=== PATIENT | male | born 1965 | race Caucasian/White ===

== ENCOUNTER 2021-02-04 10:24 | Emergency (ER) | payer BC, MEDICARE ==
[2021-02-04] MEDS ORDERED: Sodium Chloride 0.9% 1,000 ML IV ONE (10:47)
[2021-02-04] MEDS ORDERED: Sodium Chloride 0.9% 10 ML Syringe FLUSH PRN (10:47)
[2021-02-04] MEDS ORDERED: Ondansetron 4 MG/2 ML SDV IVPUSH ONE (10:48)
--- NOTE | 2021-02-04 11:13 | EDM.PDOC ---
ED HPI GENERAL MEDICAL PROBLEM - General Stated Complaint: COUGH, FEVER Time Seen by Provider: 02/04/21 10:35 Source of Information: Reports: Patient History Limitations: Reports: No Limitations - History of Present Illness INITIAL COMMENTS - FREE TEXT/NARRATIVE: Patient presented to the ED because of migraine headache for 3 days. He took his topamax qithout relief. He at least 2-3 migraine attack/month. The headache is over the left temporal area with associated nausea and vomiting several times as well as photophobia. There is no fever, chills, cough or cold. - Related Data Allergies Allergy/AdvReac Type Severity Reaction Status Date / Time citalopram [From Celexa] Allergy Other Verified 02/04/21 11:26 divalproex sodium Allergy Other Verified 02/04/21 11:26 [From Depakote] haloperidol [From Haldol] Allergy Other Verified 02/04/21 11:27 risperidone [From Risperdal] Allergy Other Verified 02/04/21 11:26 no NSAIDS Allergy Other Uncoded 02/04/21 11:28 no triptins Allergy Other Uncoded 02/04/21 11:28 Home Meds: Home Meds Apixaban [Eliquis] 5 mg PO BID 02/04/21 [History] Mirtazapine [Remeron] 15 mg PO BEDTIME 02/04/21 [History] PARoxetine HCl [Paxil] 40 mg PO BEDTIME 02/04/21 [History] Prochlorperazine [Compazine] 10 mg PO Q6H PRN #30 tab 02/04/21 [Rx] Topiramate [Topamax] 50 mg PO BID 02/04/21 [History] dilTIAZem HCL [Cardizem LA] 300 mg PO DAILY 02/04/21 [History] ED ROS GENERAL - Review of Systems Review Of Systems: See Below HEENT: Reports: No Symptoms Respiratory: Reports: No Symptoms Cardiovascular: Reports: No Symptoms Endocrine: Reports: No Symptoms GI/Abdominal: Reports: Nausea, Vomiting Musculoskeletal: Reports: No Symptoms Skin: Reports: No Symptoms Neurological: Reports: Headache Psychiatric: Reports: No Symptoms Hematologic/Lymphatic: Reports: No Symptoms Immunologic: Reports: No Symptoms ED EXAM, GENERAL - Physical Exam Exam: See Below Exam Limited By: No Limitations General Appearance: Alert, No Apparent Distress Eye Exam: Bilateral Eye: PERRL Ears: Normal External Exam, Normal Canal Nose: Normal Inspection, Normal Mucosa, No Blood Throat/Mouth: Normal Inspection, Normal Lips, Normal Teeth, Normal Gums, Normal Oropharynx, Normal Voice, No Airway Compromise Head: Atraumatic, Normocephalic Neck: Normal Inspection, Supple, Non-Tender, Full Range of Motion Respiratory/Chest: No Respiratory Distress, Lungs Clear, Normal Breath Sounds, No Accessory Muscle Use, Chest Non-Tender Cardiovascular: Normal Peripheral Pulses, Regular Rate, Rhythm, No Edema, No Gallop, No Murmur, No Rub GI/Abdominal: Normal Bowel Sounds, Soft, Non-Tender, No Organomegaly, No Distention, No Abnormal Bruit, No Mass Back Exam: Normal Inspection, Full Range of Motion Extremities: Normal Inspection, Normal Range of Motion Neurological: Alert, Oriented, CN II-XII Intact, Normal Cognition, Normal Gait, Normal Reflexes, No Motor/Sensory Deficits Course - Vital Signs Text/Narrative:: lab result was reviewed and discussed with patient Zofran 4 mg IV x1 Compazine 10 mg IV x1 Toradol 30 mg IV x1 NS 1 L bolus Last Recorded V/S: Last Vital Signs Temp 36.6 C 02/04/21 10:30 Pulse 77 02/04/21 10:30 Resp 16 02/04/21 10:30 BP 150/86 H 02/04/21 10:30 Pulse Ox 97 02/04/21 10:30 - Orders/Labs/Meds Orders: Active Orders 24 hr Category Date Time Status Sodium Chloride 0.9% [Saline Flush] Med 02/04/21 10:47 Active 10 ml FLUSH ASDIRECTED PRN Saline Lock Insert [OM.PC] Routine Oth 02/04/21 10:47 Ordered Medication Orders Sodium Chloride (Sodium Chloride 0.9% 10 Ml Syringe) 10 ml FLUSH ASDIRECTED PRN PRN Reason: Keep Vein Open Last Admin: 02/04/21 11:39 Dose: 10 ml Documented by: GRACY Labs: Laboratory Tests 02/04/21 Range/Units 11:09 Sodium 139 (135-145) mmol/L Potassium 3.5 (3.5-5.3) mmol/L Chloride 106 (100-110) mmol/L Carbon Dioxide 22 (21-32) mmol/L BUN 13 (7-18) mg/dL Creatinine 1.1 (0.70-1.30) mg/dL Est Cr Clr Drug Dosing TNP Estimated GFR (MDRD) > 60 (>60) BUN/Creatinine Ratio 11.8 (9-20) Glucose 119 H (80-116) mg/dL Calcium 8.9 (8.6-10.2) mg/dL Meds: Medications Generic Name Dose Route Start Last Admin Trade Name Freq PRN Reason Stop Dose Admin Sodium Chloride 10 ml 02/04/21 10:47 02/04/21 11:39 Sodium Chloride 0.9% 10 Ml Syringe FLUSH 10 ml ASDIRECTED PRN Administration Keep Vein Open Discontinued Medications Generic Name Dose Route Start Last Admin Trade Name Freq PRN Reason Stop Dose Admin Sodium Chloride 1,000 mls @ 999 mls/hr 02/04/21 10:47 02/04/21 11:00 Normal Saline IV 02/04/21 11:47 999 mls/hr .BOLUS ONE Administration Ketorolac Tromethamine 30 mg 02/04/21 11:25 02/04/21 11:33 Ketorolac 30 Mg/Ml Sdv IVPUSH 02/04/21 11:26 30 mg NOW STA Administration Ondansetron HCl 4 mg 02/04/21 10:48 02/04/21 11:04 Ondansetron 4 Mg/2 Ml Sdv IVPUSH 02/04/21 10:49 4 mg ONETIME ONE Administration Prochlorperazine Edisylate 10 mg 02/04/21 11:25 02/04/21 11:33 Prochlorperazine 10 Mg/2 Ml Sdv IVPUSH 02/04/21 11:26 10 mg NOW STA Administration Departure - Departure Time of Disposition: 12:00 Disposition: Home, Self-Care 01 Condition: Good Clinical Impression: Migraine, Medication refill - Discharge Information Prescriptions: Prochlorperazine [Compazine] 10 mg PO Q6H PRN #30 tab PRN Reason: Nausea Instructions: Chronic Migraine Headache, [id number], Dehydration, Adult, [id number] Referrals: PCP,Not In Area [Primary Care Provider] - Forms: ED Department Discharge Additional Instructions: Please read discharge instructions on migraine Zofran odt 4 mg every 4 hours as needed for nausea. If one is not enough you can take 2 tablets Ibuprofen 800 mg with tylenol 1000 mg every 8 hours as needed for pain/ache Follow up as needed Sepsis Event Note (ED) - Focused Exam Vital Signs: Vital Signs Temp Pulse Resp BP Pulse Ox 02/04/21 10:30 36.6 C 77 16 150/86 H 97 - My Orders Last 24 Hours: My Active Orders 02/04/21 10:47 Sodium Chloride 0.9% [Saline Flush] 10 ml FLUSH ASDIRECTED PRN Saline Lock Insert [OM.PC] Routine - Assessment/Plan Last 24 Hours: My Active Orders 02/04/21 10:47 Sodium Chloride 0.9% [Saline Flush] 10 ml FLUSH ASDIRECTED PRN Saline Lock Insert [OM.PC] Routine
[2021-02-04] MEDS ORDERED: Prochlorperazine 10 MG/2 ML SDV IVPUSH STA (11:25)
[2021-02-04] MEDS ORDERED: Ketorolac 30 MG/ML SDV IVPUSH STA (11:25)
== END 2021-02-04 12:16 | disposition home or self-care (01) ==
LOC: FB.ED 10:24
DX: G43.909 Migraine, unspecified, not intractable, without status migrainosus (principal); Z76.0 Encounter for issue of repeat prescription; Z88.8 Allergy status to other drugs, medicaments and biological substances; Z79.899 Other long term (current) drug therapy
CPT/HCPCS: 36415; 80048; 96374; 96375; 99284-25; J0780; J1885; J2405; J7030